=== PATIENT | female | born 1965 | race Caucasian/White ===

== ENCOUNTER 2016-05-28 20:12 | Emergency (ER) | payer BC ==
--- NOTE | 2016-05-28 20:19 | PDOC ---
History of Present Illness - General History Source: Patient - History of Present Illness Initial Comments: 05/28/16 20:51 The patient is a 51 year old female, who presents to the emergency department with headache for the past month and double vision for the past week. She describes her headache as ranging from mild to moderate, without radiation or modifying factors. She notes that she recently saw her PMD prior to the onset of the double vision. She also notes that she took Motrin today with minimal relief of her symptoms. She states that she is under stress at work and believes that this may be attributing to her symptoms. She reports that she is not taking any blood pressure medications and states that todays blood pressure of 187/102 is the highest its ever been. The patient denies chest pain, shortness of breath and dizziness. Denies fever, chills, nausea, vomit, diarrhea and constipation. Denies dysuria, frequency, urgency and hematuria. PAST MEDICAL HISTORY: HTN PAST SURGICAL HISTORY: no significant history FAMILY HISTORY: no pertinent history SOCIAL HISTORY: Pt lives with family and is employed. MEDICATIONS: reviewed ALLERGIES: As per nursing notes <Lui Abdi - Last Filed: 05/28/16 20:53> - General History Source: Patient Exam Limitations: No Limitations - History of Present Illness Initial Comments: 05/28/16 21:36 A portion of this note was documented by scribe services under my direction. I have reviewed the details of the note, within reason, and agree with the documentation. The case summary and management plan written by me. Reevaluation: Post clonidine patient's blood pressure is improved and is now 138/86. Patient states that that her double vision has resolved and her headache is slightly improved. Patient's head CT is still pending. Otherwise her blood work is unremarkable. 05/28/16 23:[address] shows no acute intracranial pathology or infarction Assessment and plan: This is a 51-year-old female who comes in complaining of one month of headaches and 1 week of blurry vision/double vision. Patient blood pressure was elevated here in the emergency room and she was given clonidine for the elevated blood pressure. Post clonidine patient's blood pressure came down into the near-normal range and patient's blurry vision resolved but she still complained of a residual small headache. A CAT scan was done which was negative for any acute intercranial pathology Patient started on hydrochlorothiazide her hypertension and will follow-up with her doctor in 2 days. Patient given instructions as to what to return for. <Christine Gunter I - Last Filed: 05/28/16 23:08> - General Chief Complaint: Blurry Vision Stated Complaint: H/A, BLURRY VISION X1 MO Time Seen by Provider: 05/28/16 20:19 Past History <Lui Abdi - Last Filed: 05/28/16 20:53> <Christine Gunter I - Last Filed: 05/28/16 23:08> - Past Medical History Allergies/Adverse Reactions: Allergies Allergy/AdvReac Type Severity Reaction Status Date / Time No Known Allergies Allergy Unverified 05/28/16 20:21 Home Medications: Ambulatory Orders Hydrochlorothiazide [Hctz -] 12.5 mg PO BID #14 cap 05/28/16 Ibuprofen [Motrin -] 400 mg PO PRN PRN 05/28/16 Review of Systems - Review of Systems Able to Perform ROS?: Yes Comments:: 05/28/16 20:52 General: No fevers or chills, no weakness, no weight loss HEENT: +Double vision. No sore throat,. No ear pain CardioVascular: No chest pain or shortness of breath Respiratory:No cough, or wheezing. Gastrointestinal: no nausea, vomiting, diarrhea or constipation, No rectal bleeding Genitourinary: No dysuria, hematuria, or frequency Musculoskeletal: No joint or muscle pain or swelling Neurologic: +Headache. No vertigo, dizziness or loss of consciousness Psychiatric: nor depression Skin: No rashes or easy bruising Endocrine: no increased thirst or abnormal weight change Allergic: no skin or latex allergy All other systems reviewed and normal <Lui Abdi - Last Filed: 05/28/16 20:53> *Physical Exam - Vital Signs Last Vital Signs Temp Pulse Resp BP Pulse Ox 97.9 F 92 H 16 187/102 96 05/28/16 20:22 05/28/16 20:22 05/28/16 20:22 05/28/16 20:22 05/28/16 20:22 - Physical Exam Comments: 05/28/16 20:52 General: Well-nourished well-developed individual, no acute distress HEENT: Throat: Normal, tonsils normal, no erythema or exudate Neck: Supple, no meningeal signs, no lymphadenopathy Eyes::Pupils equal reactive and round, extraocular motion intact Chest: Nontender to palpation Cardiac: S1-S2 normal, regular rate and rhythm, no murmurs rubs or gallops Respiratory: Lungs clear to auscultation bilateral Abdomen: Soft, nondistended, normal bowel sounds, nontender to palpation diffusely Extremities: Warm, dry, no cyanosis, clubbing, or edema Skin: No rashes Neuro: Alert and oriented x3, nonfocal exam, grossly intact, normal gait Psych: Normal mood and affect <Lui Abdi - Last Filed: 05/28/16 20:53> Heart Score/ECG Review #1 ECG reviewed & interpreted by me at: 20:53 05/28/16 20:50 Ventricular rate: 86 bpm Normal sinus rhythm <Lui Abdi - Last Filed: 05/28/16 20:53> ED Treatment Course - LABORATORY CBC & Chemistry Diagram: 05/28/16 20:41 05/28/16 20:41 - Medications Given in the ED: ED Medications Discontinued Medications Generic Name Dose Route Start Last Admin Trade Name Freq PRN Reason Stop Dose Admin Clonidine 0.2 mg 05/28/16 20:37 05/28/16 20:43 Catapres - PO 05/28/16 20:38 0.2 mg ONCE ONE Administration <Lui Abdi - Last Filed: 05/28/16 20:53> - LABORATORY CBC & Chemistry Diagram: 05/28/16 20:41 05/28/16 20:41 <Christine Gunter I - Last Filed: 05/28/16 23:08> *DC/Admit/Observation/Transfer - Attestations Scribe Attestion: 05/28/16 20:52 Documentation prepared by Lui Abdi, acting as medical records assistant for Christine Gunter MD <Lui Abdi - Last Filed: 05/28/16 20:53> <Christine Gunter I - Last Filed: 04/15/17 23:08> Diagnosis at time of Disposition: Hypertension Qualifiers: Hypertension type: essential hypertension Qualified Code(s): I10 - Essential ( primary) hypertension Headache Qualifiers: Headache type: unspecified Headache chronicity pattern: chronic headache - Discharge Dispostion Condition at time of disposition: Stable - Prescriptions Prescriptions: Hydrochlorothiazide [Hctz -] 12.5 mg PO BID #14 cap - Referrals Referrals: Carlos Abdi [Primary Care Provider] - - Patient Instructions Additional Instructions: For your elevated blood pressures start taking hydrochlorothiazide. Take one tablet twice a day I'm giving you a prescription for 7 days. Call your doctor on Monday get an appointment to follow-up with your doctor as soon as possible. Return to the emergency room for any worsening symptoms, new neurological symptoms or any concerns. Return to the emergency department immediately with ANY new, persistent or worsening symptoms. Continue any medications as previously prescribed by your physician. You should follow up with your primary doctor as soon as possible regarding today's emergency department visit. . Please make sure your doctor reviews the results of your emergency evaluation. Thank you for coming to the Emergency Department today for your care. It was a pleasure to see you today. Please note that your evaluation is INCOMPLETE until you follow-up with your doctor.
[2016-05-28 20:37] VITALS: TEMP 97.9; BMI 39.0
[2016-05-28] MEDS ORDERED: cloNIDine HCL 0.1 MG TABLET PO ONE (20:37)
[2016-05-28] MEDS ORDERED: cloNIDine HCL 0.1 MG TABLET ONE (20:42)
[2016-05-28 21:02] LABS: BASOPHIL 2.1 % (0-2.0); MCH 31.3 pg (25.7-33.7); MCHC 34.7 g/dl (32.0-36.0); MEAN PLT VOLUME 8.3 fl (7.5-11.1); PLATELET COUNT 344 K/MM3 (134-434); RDW 12.4 % (11.6-15.6); WHITE BLOOD COUNT 10.7 K/mm3 (4.0-10.8)
[2016-05-28 21:07] LABS: URINE APPEARANCE Clear; URINE BILIRUBIN Negative (NEGATIVE); URINE GLUCOSE (UA) Negative (NEGATIVE); URINE KETONE Negative (NEGATIVE); URINE LEUK ESTERASE Negative (NEGATIVE); URINE NITRITE Negative (NEGATIVE); URINE PROTEIN Trace (NEGATIVE); URINE UROBILINOGEN 0.2 E.U/dl (0.2-1.0)
[2016-05-28 21:08] LABS: URINE BLOOD 1 (NEGATIVE); URINE COLOR YELLOW
[2016-05-28 21:11] LABS: CPK(DFH) 93 IU/L (26-140)
[2016-05-28 21:12] LABS: ALBUMIN 4.5 g/dl (3.5-5.0); ALK PHOS 55 U/L (32-92); ANION GAP 11 (8-16); BILIRUBIN,TOTAL 0.4 mg/dl (0.2-1.0); CALCIUM 9.8 mg/dl (8.4-10.2); CO2 25 mmol/L (22-28); CREATININE 0.8 mg/dl (0.6-1.3); GLUCOSE,RANDOM 103 mg/dl (74-106); SGOT/AST 28 U/L (10-42); SGPT/ALT 45 U/L (10-40); TOT PROT 7.5 g/dl (6.4-8.3)
[2016-05-28 21:17] LABS: URINE BACTERIA FEW /hpf (NEGATIVE)
[2016-05-28 21:35] VITALS: PULSE 77
[2016-05-28 21:36] LABS: TROPONIN I (DFP) < 0.03 ng/ml (0.03-0.50)
[2016-05-28 23:11] VITALS: BP 106/57
[2016-05-28] MEDS ORDERED: KETOROLAC TROMETHAMINE 30 MG/1 ML VIAL IVPUSH ONE (23:13)
[2016-05-28] MEDS ORDERED: KETOROLAC TROMETHAMINE 30 MG/1 ML VIAL ONE (23:17)
--- NOTE | 2016-05-29 16:08 | EKG ---
Test Reason : Blood Pressure : / mmHG Vent. Rate : 086 BPM Atrial Rate : 086 BPM P-R Int : 156 ms QRS Dur : 078 ms QT Int : 386 ms P-R-T Axes : 046 000 016 degrees QTc Int : 461 ms NORMAL SINUS RHYTHM NORMAL ECG NO PREVIOUS ECGS AVAILABLE Confirmed by ASHER LINDSEY MD ([id number]) on 05/29/2016 4:07:37 PM Referred By: SHORTY MORROW Confirmed By:ASHER LINDSEY MD
== END 2016-05-28 23:23 | disposition home or self-care (01) ==
LOC: FER 20:12
PROC: 3E0333Z Introduction of Anti-inflammatory into Peripheral Vein, Percutaneous Approach (ICD-10-PCS; principal; 2016-05-28)
DX: I10 Essential (primary) hypertension (principal); R51 Headache
CPT/HCPCS: 36415; 70450-TC; 80053; 81003; 81015; 82550; 84484; 85025; 93005; 99283-25